=== PATIENT | female | born 1935 | race Asian ===

== ENCOUNTER 2017-02-13 15:04 | Inpatient (IN) | payer MEDICARE, OTHER ==
[~2017-02-13] VITALS: Ht 152.4 cm; Wt 73.9 kg
[~2017-02-13 15:04] MED LIST: AMLO-512 PO; ATEN25 PO; CALC-15 PO; CILO100T20 PO
[2017-02-13] MEDS ORDERED: SODIUM CHLORIDE 0.9% 1,000 ML IV ONE (15:45)
[2017-02-13] MEDS ORDERED: ALBUTEROL SULFATE 5 MG/ML 20 ML NEB SOLN [BULK] NEB ONE (15:45)
[2017-02-13] MEDS ORDERED: IPRATROPIUM BROMIDE 0.5 MG/2.5 ML NEB SOLUTION NEB ONE (15:45)
[2017-02-13 16:18] LABS: HEMATOCRIT 37.6 % (36-46); HEMOGLOBIN 12.5 g/dL (12.0-16.0); MEAN CORPUSCULAR HGB CONC 33.3 G/dL (31.0-37.0); MEAN CORPUSCULAR VOLUME 93 fL (80-100); RED BLOOD CELL COUNT(AUTO) 4.04 MIL/uL (4.00-5.20); WHITE BLOOD COUNT (AUTO) 21.8 K/uL (4.5-11.0)
[2017-02-13 16:25] LABS: ANION GAP 24 mmol/L (8-16); CARBON DIOXIDE 15 mmol/L (22-29); CHLORIDE 100 mmol/L (98-107); CREATININE 4.67 mg/dL (0.60-1.30); GLOMERULAR FILTR. RATE CALC 9 mL/min (>60); POTASSIUM 4.3 mmol/L (3.5-5.1); SODIUM SERUM 139 mmol/L (136-145); UREA NITROGEN, BLOOD 57 mg/dL (7-18)
[2017-02-13 16:27] LABS: ALANINE AMINOTRANSFERASE 40 U/L (12-78); ALBUMIN 3.2 g/dL (3.4-5.0); ASPARTATE AMINOTRANSFERASE 45 U/L (15-37); BILIRUBIN,TOTAL 0.8 mg/dL (0.1-1.0); TOTAL PROTEIN, SERUM 8.2 g/dL (6.4-8.2)
[2017-02-13 16:44] LABS: PLATELET COUNT (AUTO) 118 K/uL (150-450)
[2017-02-13] MEDS ORDERED: AZITHROMYCIN 500 MG/NS 250 ML IV ONE (16:45)
[2017-02-13] MEDS ORDERED: CefTRIAXone 1 GM/DEXTROSE 50 ML IV ONE (16:45)
[2017-02-13 16:47] LABS: BAND NEUTROPHILS % (MANUAL) 13 % (1-5); BASOPHILS % (MANUAL) 1 % (0-2); LYMPHOCYTES % (MANUAL) 5 % (22-44); TOTAL CELLS COUNTED 100
[2017-02-13 16:48] LABS: WBC MORPHOLOGY TOXIC VACUOLATION
[2017-02-13 16:48] LABS: ADD UA MICROSCOPIC YES; APPEARANCE,URINE TURBID (CLEAR); GLUCOSE, URINE (UA) NEGATIVE (NEGATIVE); KETONES,URINE TRACE mg/dL (NEGATIVE); LEUKOCYTE ESTERASE ,URINE MODERATE (NEGATIVE); OCCULT BLOOD,URINE LARGE (NEGATIVE); PROTEIN,URINE SEE CONFIRM (NEGATIVE)
[2017-02-13 16:49] LABS: SULFOSALICYLIC ACID,URINE 3+ (Negative)
[2017-02-13 16:50] LABS: SQUAMOUS EPITHELIAL CELL,UR Few /LPF (None Seen); WBC,URINE 26-50 /HPF (0-5)
[2017-02-13 16:55] LABS: B-TYPE NATRIURETIC PEPTIDE 603 pg/mL (0-100)
[2017-02-13 17:02] LABS: LACTIC ACID 5.7 mmol/L (0.4-2.0)
[2017-02-13 18:07] LABS: REFLEX LACTIC ACID? YES YES
[2017-02-13] MEDS ORDERED: ACETAMINOPHEN 325 MG TABLET PO PRN (18:15)
[2017-02-13] MEDS ORDERED: ZOLPIDEM TARTRATE 5 MG TABLET PO PRN (18:15)
[2017-02-13] MEDS ORDERED: SODIUM CHLORIDE 0.9% 500 ML IV ONE (19:00)
[2017-02-13] MEDS ORDERED: ACETAMINOPHEN 1000 MG/ISO-OSM 100 ML IV ONE (19:15)
[2017-02-13] MEDS ORDERED: MetroNIDAZOLE 500 MG TABLET PO ONE (22:45)
[2017-02-13] MEDS: CIPROFLOXACIN HCL 500 MG TABLET PO SCH (23:26)
[2017-02-13] MEDS: DEXTROSE 5%-0.45% SODIUM CHL 1,000 ML IV SCH (23:27)
[2017-02-14] VITALS (8 sets, daily range): BP systolic 87–126; BP diastolic 51–66
[2017-02-14] MEDS: HEPARIN SODIUM,PORCINE 5,000 UNITS/ML VIAL SQ SCH ×3 (01:14→16:00)
[2017-02-14] MEDS: LOPERAMIDE HCL 2 MG CAPSULE PO PRN ×2 (01:14→08:05)
[2017-02-14] MEDS: OxyCODONE HCL/ACETAMINOPHEN 5-325 MG TABLET PO PRN (04:29)
[2017-02-14] MEDS ORDERED: 0.9% SODIUM CHLORIDE 5 ML NEB SOLUTION NEB ONE ×2 (04:42→09:35)
[2017-02-14] MEDS: ALBUTEROL SULFATE 2.5 MG/0.5 ML NEB SOLUTION NEB PRN ×2 (04:58→09:36)
[2017-02-14 05:10] LABS: HEMOGLOBIN 11.7 g/dL (12.0-16.0); MEAN CORPUSCULAR HEMOGLOBIN 30.7 pg (26.0-34.0); MEAN CORPUSCULAR HGB CONC 31.7 G/dL (31.0-37.0); MEAN CORPUSCULAR VOLUME 97 fL (80-100); PLATELET COUNT (AUTO) 77 K/uL (150-450); RED BLOOD CELL COUNT(AUTO) 3.82 MIL/uL (4.00-5.20); RED CELL DISTRIBUTION WIDTH 15.3 % (11.5-14.5); WHITE BLOOD COUNT (AUTO) 10.9 K/uL (4.5-11.0)
[2017-02-14 05:48] LABS: ALBUMIN 2.4 g/dL (3.4-5.0); BILIRUBIN,TOTAL 0.7 mg/dL (0.1-1.0); CALCIUM, TOTAL 7.6 mg/dL (8.8-10.5); CREATININE 4.86 mg/dL (0.60-1.30); POTASSIUM 3.6 mmol/L (3.5-5.1); TOTAL PROTEIN, SERUM 6.9 g/dL (6.4-8.2)
[2017-02-14] MEDS: CILOSTAZOL 100 MG TABLET PO SCH ×3 (07:41→17:00)
[2017-02-14] MEDS: DEXTROSE 5%-0.45% SODIUM CHL 1,000 ML IV SCH (07:42)
[2017-02-14] MEDS: CIPROFLOXACIN HCL 500 MG TABLET PO SCH (08:04)
[2017-02-14] MEDS: PANTOPRAZOLE SODIUM 40 MG DR TABLET PO SCH (08:05)
[2017-02-14 08:39] LABS: ABG A-A DIFF O2 129.9 mmHg (10-20.0); ABG BASE EXCESS -10.4 mmol/L (-2.0-3.0); ABG HCO3 17.8 mmol/L (22.0-26.0); ABG OXYHEMOGLOBIN 94.4 % (94.0-100.0); ABG PCO2 23 mmHg (35-45); ABG PH 7.417 (7.35-7.450); TEMPERATURE, FAHRENHEIT, BG 98.6 FAHREN (96.0-98.6)
[2017-02-14 08:40] LABS: ALLEN TEST, BLOOD GAS Positive
[2017-02-14 08:44] LABS: BAND NEUTROPHILS % (MANUAL) 42 % (1-5); LYMPHOCYTES % (MANUAL) 6 % (22-44); TOTAL CELLS COUNTED 100
[2017-02-14 08:45] LABS: WBC MORPHOLOGY TOXIC GRANULATION
[2017-02-14] MEDS ORDERED: MetroNIDAZOLE 500 MG TABLET PO SCH (09:00)
[2017-02-14] MEDS ORDERED: LEVALBUTEROL HCL 1.25 MG/0.5 ML NEB SOLUTION NEB PRN (09:45)
[2017-02-14] MEDS ORDERED: PHENYLEPHRINE 200 MG/D5%-WATER 250 ML IV ONE (09:52)
[2017-02-14] MEDS: PHENYLEPHRINE 200 MG/D5%-WATER 250 ML IV PRN (09:53)
[2017-02-14 11:38] LABS: ABG A-A DIFF O2 126.7 mmHg (10-20.0); ABG HCO3 15.3 mmol/L (22.0-26.0); ABG OXYHEMOGLOBIN 96.1 % (94.0-100.0); ABG PCO2 28 mmHg (35-45); ABG PH 7.301 (7.35-7.450); ALLEN TEST, BLOOD GAS Positive; IPAP, BG 12 cm H2O; TEMPERATURE, FAHRENHEIT, BG 98.5 FAHREN (96.0-98.6)
[2017-02-14] MEDS: LEVALBUTEROL HCL 0.63 MG/3 ML NEB SOLUTION NEB SCH ×4 (11:49→23:48)
[2017-02-14] MEDS ORDERED: *CLINICAL-LEVOFLOXACIN IVPB DOSING CLINICAL ONE ×2 (12:30)
[2017-02-14] MEDS ORDERED: SODIUM BICARBONATE 50 MEQ in SODIUM CHLORIDE 0.9% 1,000 ML IV SCH (12:30)
[2017-02-14] MEDS ORDERED: SODIUM CHLORIDE 0.9% 250 ML IV ONE (12:56)
[2017-02-14] MEDS ORDERED: LEVOFLOXACIN 500 MG/D5% WATER 100 ML IV ONE (13:15)
[2017-02-14] MEDS: MetroNIDAZOLE 500 MG/NACL 100 ML IV SCH ×2 (13:33→20:33)
[2017-02-14 13:58] LABS: ANION GAP 19 mmol/L (8-16); CALCIUM, TOTAL 7.1 mg/dL (8.8-10.5); CARBON DIOXIDE 16 mmol/L (22-29); CHLORIDE 97 mmol/L (98-107); CREATININE 5.35 mg/dL (0.60-1.30); GLOMERULAR FILTR. RATE CALC 8 mL/min (>60); POTASSIUM 3.8 mmol/L (3.5-5.1); SODIUM SERUM 132 mmol/L (136-145); UREA NITROGEN, BLOOD 69 mg/dL (7-18)
[2017-02-14 14:06] LABS: OSMOLALITY 297 mOS/kg (270-310)
[2017-02-14] MEDS ORDERED: SODIUM BICARBONATE 150 MEQ in DEXTROSE 5%-WATER 1,000 ML IV ONE (14:30)
[2017-02-14 14:44] LABS: SALICYLATE 2.8 mg/dL (2.8-20.0)
[2017-02-14 15:14] LABS: ACETAMINOPHEN < 2 mcg/mL (10-30)
[2017-02-14 19:32] LABS: PHOSPHORUS 3.6 mg/dL (2.5-4.9)
[2017-02-14 21:10] LABS: LACTIC ACID 3.2 mmol/L (0.4-2.0)
[2017-02-14] MEDS ORDERED: BUMETANIDE 0.25 MG/ML 10 ML VIAL IVP ONE (21:45)
[2017-02-14] MEDS ORDERED: MAGNESIUM SULFATE 3 GM in DEXTROSE 5%-WATER 100 ML IV ONE (22:00)
[2017-02-14 22:22] LABS: REFLEX LACTIC ACID? YES YES
[2017-02-14 23:44] LABS: ABG A-A DIFF O2 118.9 mmHg (10-20.0); ABG BASE EXCESS -12.1 mmol/L (-2.0-3.0); ABG HCO3 15.5 mmol/L (22.0-26.0); ABG OXYHEMOGLOBIN 94.3 % (94.0-100.0); ABG PCO2 40 mmHg (35-45); ABG PH 7.215 (7.35-7.450); ALLEN TEST, BLOOD GAS Positive
[2017-02-14 23:45] LABS: IPAP, BG 14 cm H2O
[2017-02-15] VITALS (10 sets, daily range): BP systolic 89–132; BP diastolic 29–81
[2017-02-15] MEDS ORDERED: RAPID SEQUENCE KIT [RSI] 1 EACH KIT ONE ×2
[2017-02-15] MEDS ORDERED: SUCCINYLCHOLINE CHLORIDE 20 MG/ML 10 ML VIAL ONE (00:01)
[2017-02-15 01:57] LABS: ABG A-A DIFF O2 274.7 mmHg (10-20.0); ABG BASE EXCESS -11.4 mmol/L (-2.0-3.0); ABG HCO3 16.5 mmol/L (22.0-26.0); ABG OXYHEMOGLOBIN 97.7 % (94.0-100.0); ABG PCO2 28 mmHg (35-45); ABG PH 7.334 (7.35-7.450); ALLEN TEST, BLOOD GAS Positive; TEMPERATURE, FAHRENHEIT, BG 100.6 FAHREN (96.0-98.6)
[2017-02-15] MEDS: HEPARIN SODIUM,PORCINE 5,000 UNITS/ML VIAL SQ SCH ×4 (02:17→23:38)
[2017-02-15] MEDS: LEVALBUTEROL HCL 0.63 MG/3 ML NEB SOLUTION NEB SCH ×6 (04:15→23:39)
[2017-02-15 05:26] LABS: EOSINOPHILS % (AUTO) 0 % (1.0-6.0); HEMOGLOBIN 10.3 g/dL (12.0-16.0); LYMPHOCYTES # (AUTO) 0.6 K/uL (1.0-4.8); MEAN CORPUSCULAR HEMOGLOBIN 30.6 pg (26.0-34.0); MEAN CORPUSCULAR HGB CONC 32.1 G/dL (31.0-37.0); MEAN CORPUSCULAR VOLUME 96 fL (80-100); MONOCYTES # (AUTO) 0.9 K/uL (0.1-1.0); MONOCYTES % (AUTO) 4.2 % (2.0-9.0); NEUTROPHILS # (AUTO) 19.3 K/uL (1.8-7.7); PLATELET COUNT (AUTO) 51 K/uL (150-450); RED BLOOD CELL COUNT(AUTO) 3.35 MIL/uL (4.00-5.20); RED CELL DISTRIBUTION WIDTH 15.4 % (11.5-14.5); WHITE BLOOD COUNT (AUTO) 20.8 K/uL (4.5-11.0)
[2017-02-15 05:51] LABS: NEUTROPHILS % (AUTO) 92.8 % (40.0-70.0)
[2017-02-15] MEDS: MetroNIDAZOLE 500 MG/NACL 100 ML IV SCH ×2 (05:51→13:30)
[2017-02-15 06:29] LABS: BILIRUBIN,TOTAL 1.7 mg/dL (0.1-1.0); CALCIUM, TOTAL 7.1 mg/dL (8.8-10.5); CREATINE KINASE MB 13.8 ng/mL (0-5); CREATININE 5.96 mg/dL (0.60-1.30); MAGNESIUM 2.5 mg/dL (1.80-2.40); PHOSPHORUS 3.8 mg/dL (2.5-4.9); POTASSIUM 4.1 mmol/L (3.5-5.1); TOTAL PROTEIN, SERUM 5.9 g/dL (6.4-8.2)
[2017-02-15] MEDS: CILOSTAZOL 100 MG TABLET PO SCH ×2 (06:46→17:16)
[2017-02-15] MEDS ORDERED: 0.9% SODIUM CHLORIDE 10 ML SYRINGE IVP PRN (07:00)
[2017-02-15] MEDS: PHENYLEPHRINE 200 MG/D5%-WATER 250 ML IV PRN ×2 (07:44→19:41)
[2017-02-15] MEDS: OxyCODONE HCL/ACETAMINOPHEN 5-325 MG TABLET PO PRN (07:48)
[2017-02-15] MEDS: PANTOPRAZOLE SODIUM 40 MG DR TABLET PO SCH (09:02)
[2017-02-15] MEDS ORDERED: PROPOFOL 1000 MG/ISO-OSM 100 ML IV ONE (09:59)
[2017-02-15] MEDS ORDERED: DIGOXIN 250 MCG/ML 2 ML AMP IVP ONE ×3 (10:00→13:30)
[2017-02-15] MEDS: MORPHINE SULFATE 2 MG/ML SYRINGE IVP PRN ×2 (10:00→16:39)
[2017-02-15 10:41] LABS: ABG A-A DIFF O2 257.4 mmHg (10-20.0); ABG BASE EXCESS -12.4 mmol/L (-2.0-3.0); ABG HCO3 16.2 mmol/L (22.0-26.0); ABG OXYHEMOGLOBIN 93.9 % (94.0-100.0); ABG PCO2 24 mmHg (35-45); ABG PH 7.356 (7.35-7.450); TEMPERATURE, FAHRENHEIT, BG 98.6 FAHREN (96.0-98.6)
[2017-02-15 10:54] LABS: ALLEN TEST, BLOOD GAS Positive
[2017-02-15] MEDS ORDERED: SUCCINYLCHOLINE CHLORIDE 20 MG/ML 10 ML VIAL IVP ONE (12:00)
[2017-02-15] MEDS ORDERED: ETOMIDATE 2 MG/ML 10 ML VIAL IVP ONE (12:00)
[2017-02-15 12:10] LABS: ABG A-A DIFF O2 245.4 mmHg (10-20.0); ABG BASE EXCESS -13.3 mmol/L (-2.0-3.0); ABG HCO3 15.3 mmol/L (22.0-26.0); ABG OXYHEMOGLOBIN 96.9 % (94.0-100.0); ABG PCO2 23 mmHg (35-45); ABG PH 7.348 (7.35-7.450)
[2017-02-15] MEDS ORDERED: AMIODARONE HCL 150 MG in DEXTROSE 5%-WATER 97 ML IV ONE (12:15)
[2017-02-15] MEDS ORDERED: AMIODARONE HCL 360 MG in DEXTROSE 5%-WATER 242.8 ML IV ONE (12:15)
[2017-02-15] MEDS: AMIODARONE HCL 540 MG in DEXTROSE 5%-WATER 239.2 ML IV ONE ×2 (13:00→18:45)
[2017-02-15] MEDS ORDERED: NOREPINEPHRINE 4 MG/D5%-WATER 250 ML IV ONE (13:06)
[2017-02-15] MEDS ORDERED: SODIUM CHLORIDE 0.9% 2,000 ML IV ONE (13:28)
[2017-02-15] MEDS ORDERED: ALBUMIN HUMAN 25%-12.5GM/50ML IV BOTTLE IV PRN (18:45)
[2017-02-15] MEDS ORDERED: MANNITOL 25%-12.5 GM/50 ML VIAL IVP PRN (18:45)
[2017-02-15] MEDS: NOREPINEPHRINE 4 MG/D5%-WATER 250 ML IV PRN (19:42)
[2017-02-15] MEDS: POTASSIUM CHLORIDE 20 MEQ in NXSTAGE RFP-402 K0/CA3 5,000 ML IRRIG PRN ×2 (23:39→23:40)
[2017-02-16] VITALS (8 sets, daily range): BP systolic 85–117; BP diastolic 34–40
[2017-02-16] MEDS ORDERED: SODIUM CHLORIDE 0.9% 500 ML IV ONE ×3 (00:04→13:47)
[2017-02-16] MEDS ORDERED: SODIUM CHLORIDE 0.9% 250 ML IV ONE (01:00)
[2017-02-16] MEDS: LEVALBUTEROL HCL 0.63 MG/3 ML NEB SOLUTION NEB SCH ×6 (03:47→22:49)
[2017-02-16] MEDS: NOREPINEPHRINE 4 MG/D5%-WATER 250 ML IV PRN ×6 (03:51→20:26)
[2017-02-16] MEDS: VASOPRESSIN 100 UNITS in DEXTROSE 5%-WATER 245 ML IV PRN (03:52)
[2017-02-16] MEDS: PROPOFOL 1000 MG/ISO-OSM 100 ML IV PRN ×2 (03:54→16:50)
[2017-02-16 04:48] LABS: BASOPHILS % (AUTO) 0.1 % (0.0-2.0); EOSINOPHILS % (AUTO) 1.9 % (1.0-6.0); HEMATOCRIT 31.1 % (36-46); HEMOGLOBIN 10.2 g/dL (12.0-16.0); LYMPHOCYTES % (AUTO) 4.8 % (22.0-44.0); MEAN CORPUSCULAR HEMOGLOBIN 30.6 pg (26.0-34.0); MEAN CORPUSCULAR HGB CONC 32.7 G/dL (31.0-37.0); MEAN CORPUSCULAR VOLUME 94 fL (80-100); MONOCYTES # (AUTO) 1.3 K/uL (0.1-1.0); MONOCYTES % (AUTO) 6.1 % (2.0-9.0); NEUTROPHILS # (AUTO) 18.7 K/uL (1.8-7.7); PLATELET COUNT (AUTO) 45 K/uL (150-450); RED BLOOD CELL COUNT(AUTO) 3.32 MIL/uL (4.00-5.20); RED CELL DISTRIBUTION WIDTH 15.2 % (11.5-14.5); WHITE BLOOD COUNT (AUTO) 21.5 K/uL (4.5-11.0)
[2017-02-16 05:05] LABS: NEUTROPHILS % (AUTO) 87.1 % (40.0-70.0)
[2017-02-16 05:10] LABS: ALBUMIN 1.7 g/dL (3.4-5.0); BILIRUBIN,TOTAL 3.1 mg/dL (0.1-1.0); CALCIUM, TOTAL 7.1 mg/dL (8.8-10.5); CREATININE 4.16 mg/dL (0.60-1.30); PHOSPHORUS 4.3 mg/dL (2.5-4.9); POTASSIUM 4.4 mmol/L (3.5-5.1); THYROID STIMULATING HORMONE 0.09 uIU/mL (0.36-3.74); TOTAL PROTEIN, SERUM 5.2 g/dL (6.4-8.2)
[2017-02-16] MEDS ORDERED: HEPARIN SODIUM,PORCINE 1,000 UNITS/ML VIAL ONE (05:17)
[2017-02-16 05:31] LABS: RBC MORPHOLOGY COMMENT ABNORMAL RBC MORPH
[2017-02-16] MEDS ORDERED: HEPARIN SODIUM,PORCINE 1,000 UNITS/ML VIAL IVP ONE ×2 (05:45→06:00)
[2017-02-16] MEDS: CILOSTAZOL 100 MG TABLET PO SCH ×2 (06:44→17:00)
[2017-02-16] MEDS: PHENYLEPHRINE 200 MG/D5%-WATER 250 ML IV PRN ×2 (06:46→19:57)
[2017-02-16] MEDS: MORPHINE SULFATE 2 MG/ML SYRINGE IVP PRN (07:28)
[2017-02-16] MEDS: HEPARIN SODIUM,PORCINE 5,000 UNITS/ML VIAL SQ SCH ×2 (08:00)
[2017-02-16] MEDS ORDERED: DEXTROSE 50%-WATER 25 GM/50 ML SYRINGE IVP ONE ×2 (08:00)
[2017-02-16 09:00] LABS: INR 1.6 (0.9-1.1); PROTHROMBIN TIME 17.4 SEC (9.4-11.6)
[2017-02-16] MEDS ORDERED: ALBUMIN HUMAN 25%-12.5GM/50ML 50 ML IV ONE ×2 (09:00)
[2017-02-16] MEDS: PANTOPRAZOLE SODIUM 40 MG DR TABLET PO SCH (09:00)
[2017-02-16] MEDS ORDERED: SODIUM BICARBONATE 50 MEQ/50 ML VIAL IVP ONE (10:00)
[2017-02-16] MEDS: PHYTONADIONE 10 MG/1 ML AMP SQ SCH (10:00)
[2017-02-16] MEDS ORDERED: SODIUM CHLORIDE 0.9% 1,000 ML IV ONE (10:01)
[2017-02-16] MEDS ORDERED: SODIUM BICARBONATE [ADULT] 8.4% 50 MEQ/50 ML SYRINGE IVP ONE (10:15)
[2017-02-16 11:11] LABS: GLUCOSE COMMENT 1 Doctor Notified; GLUCOSE,POINT OF CARE 37 MG/DL (70-110)
[2017-02-16] MEDS: POTASSIUM CHLORIDE 20 MEQ in NXSTAGE RFP-402 K0/CA3 5,000 ML IRRIG PRN ×4 (11:25→23:34)
[2017-02-16] MEDS: METOCLOPRAMIDE HCL 5 MG/ML 2 ML VIAL IVP PRN ×2 (11:26→22:30)
[2017-02-16] MEDS ORDERED: AMIODARONE HCL 750 MG in DEXTROSE 5%-WATER 485 ML IV SCH (12:30)
[2017-02-16] MEDS ORDERED: LEVOFLOXACIN 250 MG/D5% WATER 50 ML IV SCH (13:00)
[2017-02-16] MEDS: CefTRIAXone 1 GM/DEXTROSE 50 ML IV SCH (14:12)
[2017-02-16 15:32] LABS: ABG A-A DIFF O2 219.6 mmHg (10-20.0); ABG BASE EXCESS -10.7 mmol/L (-2.0-3.0); ABG HCO3 16.8 mmol/L (22.0-26.0); ABG OXYHEMOGLOBIN 96.7 % (94.0-100.0); ABG PCO2 31 mmHg (35-45); ABG PH 7.312 (7.35-7.450); TEMPERATURE, FAHRENHEIT, BG 98.6 FAHREN (96.0-98.6)
[2017-02-16 18:27] LABS: GLUCOSE,POINT OF CARE 147 MG/DL (70-110)
[2017-02-16 18:27] LABS: GLUCOSE,POINT OF CARE 228 MG/DL (70-110)
[2017-02-16 18:27] LABS: GLUCOSE,POINT OF CARE 184 MG/DL (70-110)
[2017-02-16 18:27] LABS: GLUCOSE,POINT OF CARE 112 MG/DL (70-110)
[2017-02-16 18:27] LABS: GLUCOSE,POINT OF CARE 119 MG/DL (70-110)
[2017-02-16 18:27] LABS: GLUCOSE,POINT OF CARE 141 MG/DL (70-110)
[2017-02-16 20:39] LABS: CALCIUM, TOTAL 6.9 mg/dL (8.8-10.5); CREATININE 2.36 mg/dL (0.60-1.30); POTASSIUM 4.1 mmol/L (3.5-5.1)
[2017-02-16 20:42] LABS: MAGNESIUM 1.7 mg/dL (1.80-2.40); PHOSPHORUS 3.1 mg/dL (2.5-4.9)
[2017-02-16] MEDS: MetroNIDAZOLE 500 MG/NACL 100 ML IV SCH (22:13)
[2017-02-17] VITALS: BP 99/29
[2017-02-17] MEDS: NOREPINEPHRINE 4 MG/D5%-WATER 250 ML IV PRN ×5 (00:47→19:52)
[2017-02-17 01:01] LABS: GLUCOSE,POINT OF CARE 163 MG/DL (70-110)
[2017-02-17 01:01] LABS: GLUCOSE,POINT OF CARE 71 MG/DL (70-110)
[2017-02-17 01:01] LABS: GLUCOSE COMMENT 1 Received Meds; GLUCOSE,POINT OF CARE 61 MG/DL (70-110)
[2017-02-17 01:01] LABS: GLUCOSE,POINT OF CARE 98 MG/DL (70-110)
[2017-02-17] MEDS: LEVALBUTEROL HCL 0.63 MG/3 ML NEB SOLUTION NEB SCH ×6 (02:55→23:46)
[2017-02-17 04:00] VITALS: BP 132/38
[2017-02-17] MEDS: PROPOFOL 1000 MG/ISO-OSM 100 ML IV PRN ×2 (04:57→22:55)
[2017-02-17] MEDS: POTASSIUM CHLORIDE 20 MEQ in NXSTAGE RFP-402 K0/CA3 5,000 ML IRRIG PRN ×4 (05:46→20:31)
[2017-02-17] MEDS: DEXTROSE 50%-WATER 25 GM/50 ML SYRINGE IVP PRN ×2 (05:50)
[2017-02-17] MEDS: MetroNIDAZOLE 500 MG/NACL 100 ML IV SCH ×2 (05:50→16:05)
[2017-02-17 06:12] LABS: GLUCOSE COMMENT 1 Received Meds; GLUCOSE,POINT OF CARE 66 MG/DL (70-110)
[2017-02-17 06:19] LABS: EOSINOPHILS % (AUTO) 3.5 % (1.0-6.0); HEMATOCRIT 29.5 % (36-46); HEMOGLOBIN 9.8 g/dL (12.0-16.0); LYMPHOCYTES # (AUTO) 0.5 K/uL (1.0-4.8); LYMPHOCYTES % (AUTO) 2.6 % (22.0-44.0); MEAN CORPUSCULAR HEMOGLOBIN 31.7 pg (26.0-34.0); MEAN CORPUSCULAR HGB CONC 33.1 G/dL (31.0-37.0); MEAN CORPUSCULAR VOLUME 96 fL (80-100); MONOCYTES # (AUTO) 0.8 K/uL (0.1-1.0); MONOCYTES % (AUTO) 4.1 % (2.0-9.0); PLATELET COUNT (AUTO) 25 K/uL (150-450); RED BLOOD CELL COUNT(AUTO) 3.09 MIL/uL (4.00-5.20); RED CELL DISTRIBUTION WIDTH 14.9 % (11.5-14.5)
[2017-02-17] MEDS: CILOSTAZOL 100 MG TABLET PO SCH ×2 (06:23→17:00)
[2017-02-17 06:38] LABS: POTASSIUM 4.1 mmol/L (3.5-5.1)
[2017-02-17 06:43] LABS: ALBUMIN 1.7 g/dL (3.4-5.0); BILIRUBIN,TOTAL 4.3 mg/dL (0.1-1.0); CALCIUM, TOTAL 7.3 mg/dL (8.8-10.5); CREATININE 1.93 mg/dL (0.60-1.30); MAGNESIUM 1.6 mg/dL (1.80-2.40); TOTAL PROTEIN, SERUM 4.7 g/dL (6.4-8.2)
[2017-02-17 06:56] LABS: NEUTROPHILS % (AUTO) 89.8 % (40.0-70.0)
[2017-02-17 06:57] LABS: RBC MORPHOLOGY COMMENT ABNORMAL RBC MORPH
[2017-02-17 07:18] LABS: PROCALCITONIN (PCT) 58.11 ng/mL (<0.50)
[2017-02-17 07:27] LABS: GLUCOSE,POINT OF CARE 93 MG/DL (70-110)
[2017-02-17 07:27] LABS: GLUCOSE,POINT OF CARE 85 MG/DL (70-110)
[2017-02-17 07:27] LABS: GLUCOSE,POINT OF CARE 161 MG/DL (70-110)
[2017-02-17 08:00] VITALS: BP 136/51
[2017-02-17] MEDS: PANTOPRAZOLE SODIUM 40 MG DR TABLET PO SCH (09:00)
[2017-02-17 09:47] LABS: ABG A-A DIFF O2 241.4 mmHg (10-20.0); ABG BASE EXCESS -2.9 mmol/L (-2.0-3.0); ABG HCO3 22.6 mmol/L (22.0-26.0); ABG OXYHEMOGLOBIN 95.9 % (94.0-100.0); ABG PCO2 31 mmHg (35-45); ABG PH 7.446 (7.35-7.450); TEMPERATURE, FAHRENHEIT, BG 97.7 FAHREN (96.0-98.6)
[2017-02-17 09:50] LABS: ALLEN TEST, BLOOD GAS Positive
[2017-02-17] MEDS: PHYTONADIONE 10 MG/1 ML AMP SQ SCH (09:59)
[2017-02-17] MEDS: METOCLOPRAMIDE HCL 5 MG/ML 2 ML VIAL IVP PRN (09:59)
[2017-02-17] MEDS ORDERED: MAGNESIUM SULFATE 3 GM in DEXTROSE 5%-WATER 100 ML IV ONE (10:00)
[2017-02-17 12:00] VITALS: BP 141/51
[2017-02-17 12:00] LABS: PHOSPHORUS 2.4 mg/dL (2.5-4.9)
[2017-02-17] MEDS: DEXTROSE 10%-WATER 1,000 ML IV SCH (12:00)
[2017-02-17] MEDS: CefTRIAXone 1 GM/DEXTROSE 50 ML IV SCH (14:19)
[2017-02-17 16:00] VITALS: BP 118/48
[2017-02-17 18:11] LABS: GLUCOSE,POINT OF CARE 92 MG/DL (70-110)
[2017-02-17 18:11] LABS: GLUCOSE,POINT OF CARE 118 MG/DL (70-110)
[2017-02-17] MEDS ORDERED: SODIUM CHLORIDE 0.9% 2,000 ML IV ONE (18:38)
[2017-02-17 20:00] VITALS: BP 106/44
[2017-02-17] MEDS ORDERED: SODIUM PHOS,M-BASIC-D-BASIC 30 MMOL in DEXTROSE 5%-WATER 250 ML IV ONE (20:30)
[2017-02-17] MEDS: VASOPRESSIN 100 UNITS in DEXTROSE 5%-WATER 245 ML IV PRN (20:41)
[2017-02-17] MEDS: PHENYLEPHRINE 200 MG/D5%-WATER 250 ML IV PRN (23:57)
[2017-02-18] VITALS: BP_SYST 132; BP_SYST 133; BP_DIAS 48; BP_DIAS 72
[2017-02-18] MEDS: NOREPINEPHRINE 4 MG/D5%-WATER 250 ML IV PRN ×6 (00:05→22:19)
[2017-02-18] MEDS: MetroNIDAZOLE 500 MG/NACL 100 ML IV SCH ×4 (00:33→23:53)
[2017-02-18 01:51] LABS: GLUCOSE COMMENT 1 Doctor Notified; GLUCOSE,POINT OF CARE 155 MG/DL (70-110)
[2017-02-18 01:51] LABS: GLUCOSE,POINT OF CARE 174 MG/DL (70-110)
[2017-02-18 01:51] LABS: GLUCOSE,POINT OF CARE 117 MG/DL (70-110)
[2017-02-18 01:51] LABS: GLUCOSE,POINT OF CARE 157 MG/DL (70-110)
[2017-02-18 01:51] LABS: GLUCOSE COMMENT 1 Doctor Notified; GLUCOSE,POINT OF CARE 150 MG/DL (70-110)
[2017-02-18 01:51] LABS: GLUCOSE,POINT OF CARE 163 MG/DL (70-110)
[2017-02-18 01:51] LABS: GLUCOSE,POINT OF CARE 148 MG/DL (70-110)
[2017-02-18] MEDS ORDERED: SODIUM CHLORIDE 0.9% 500 ML IV ONE (02:43)
[2017-02-18] MEDS: LEVALBUTEROL HCL 0.63 MG/3 ML NEB SOLUTION NEB SCH ×6 (03:17→23:02)
[2017-02-18] MEDS: POTASSIUM CHLORIDE 20 MEQ in NXSTAGE RFP-402 K0/CA3 5,000 ML IRRIG PRN ×2 (03:30→03:31)
[2017-02-18 04:00] VITALS: BP 133/72
[2017-02-18 06:10] LABS: ALBUMIN 1.6 g/dL (3.4-5.0); BILIRUBIN,TOTAL 5.7 mg/dL (0.1-1.0); CALCIUM, TOTAL 6.7 mg/dL (8.8-10.5); CREATININE 1.39 mg/dL (0.60-1.30); MAGNESIUM 2.1 mg/dL (1.80-2.40); POTASSIUM 4.5 mmol/L (3.5-5.1); TOTAL PROTEIN, SERUM 4.1 g/dL (6.4-8.2)
[2017-02-18] MEDS: CILOSTAZOL 100 MG TABLET PO SCH ×2 (06:30→16:00)
[2017-02-18 07:15] LABS: HEMATOCRIT 31.9 % (36-46); HEMOGLOBIN 10.9 g/dL (12.0-16.0); MEAN CORPUSCULAR HEMOGLOBIN 31.7 pg (26.0-34.0); MEAN CORPUSCULAR HGB CONC 34.1 G/dL (31.0-37.0); MEAN CORPUSCULAR VOLUME 93 fL (80-100); RED BLOOD CELL COUNT(AUTO) 3.43 MIL/uL (4.00-5.20); RED CELL DISTRIBUTION WIDTH 15.5 % (11.5-14.5); WHITE BLOOD COUNT (AUTO) 17.3 K/uL (4.5-11.0)
[2017-02-18 07:18] LABS: PLATELET COUNT (AUTO) 21 K/uL (150-450)
[2017-02-18 07:57] LABS: GLUCOSE,POINT OF CARE 134 MG/DL (70-110)
[2017-02-18 07:57] LABS: GLUCOSE,POINT OF CARE 149 MG/DL (70-110)
[2017-02-18 07:57] LABS: GLUCOSE,POINT OF CARE 139 MG/DL (70-110)
[2017-02-18 08:00] VITALS: BP 125/59
[2017-02-18] MEDS: PANTOPRAZOLE SODIUM 40 MG DR TABLET PO SCH (08:19)
[2017-02-18] MEDS: PHYTONADIONE 10 MG/1 ML AMP SQ SCH (08:19)
[2017-02-18 08:23] LABS: BAND NEUTROPHILS % (MANUAL) 22 % (1-5); LYMPHOCYTES % (MANUAL) 9 % (22-44); TOTAL CELLS COUNTED 100
[2017-02-18] MEDS ORDERED: SODIUM CHLORIDE 0.9% 250 ML IV ONE (09:02)
[2017-02-18] MEDS: PHENYLEPHRINE 200 MG/D5%-WATER 250 ML IV PRN (09:04)
[2017-02-18 10:21] LABS: ABG A-A DIFF O2 255.9 mmHg (10-20.0); ABG BASE EXCESS 0.2 mmol/L (-2.0-3.0); ABG HCO3 25.2 mmol/L (22.0-26.0); ABG OXYHEMOGLOBIN 93.9 % (94.0-100.0); ABG PCO2 29 mmHg (35-45); ABG PH 7.515 (7.35-7.450)
[2017-02-18 10:26] LABS: ALLEN TEST, BLOOD GAS Positive
[2017-02-18 12:00] VITALS: BP 114/48
[2017-02-18] MEDS: CefTRIAXone 1 GM/DEXTROSE 50 ML IV SCH (13:10)
[2017-02-18] MEDS: DEXTROSE 10%-WATER 1,000 ML IV SCH (13:10)
[2017-02-18] MEDS ORDERED: SODIUM PHOS,M-BASIC-D-BASIC 30 MMOL in DEXTROSE 5%-WATER 250 ML IV ONE (15:00)
[2017-02-18 16:00] VITALS: BP 105/52
[2017-02-18] MEDS: PROPOFOL 1000 MG/ISO-OSM 100 ML IV PRN (16:00)
[2017-02-18 20:00] VITALS: BP 95/43
[2017-02-19] VITALS: BP 124/54
[2017-02-19] MEDS: POTASSIUM CHLORIDE 20 MEQ in NXSTAGE RFP-402 K0/CA3 5,000 ML IRRIG PRN ×2 (02:26→02:27)
[2017-02-19 02:27] LABS: GLUCOSE,POINT OF CARE 144 MG/DL (70-110)
[2017-02-19 02:27] LABS: GLUCOSE,POINT OF CARE 125 MG/DL (70-110)
[2017-02-19 02:27] LABS: GLUCOSE,POINT OF CARE 135 MG/DL (70-110)
[2017-02-19 02:27] LABS: GLUCOSE,POINT OF CARE 120 MG/DL (70-110)
[2017-02-19 02:27] LABS: GLUCOSE,POINT OF CARE 132 MG/DL (70-110)
[2017-02-19 02:27] LABS: GLUCOSE,POINT OF CARE 147 MG/DL (70-110)
[2017-02-19 02:27] LABS: GLUCOSE,POINT OF CARE 143 MG/DL (70-110)
[2017-02-19 02:32] LABS: GLUCOSE,POINT OF CARE 156 MG/DL (70-110)
[2017-02-19 02:32] LABS: GLUCOSE,POINT OF CARE 155 MG/DL (70-110)
[2017-02-19 02:32] LABS: GLUCOSE,POINT OF CARE 128 MG/DL (70-110)
[2017-02-19] MEDS: NOREPINEPHRINE 4 MG/D5%-WATER 250 ML IV PRN ×5 (02:38→20:10)
[2017-02-19] MEDS: LEVALBUTEROL HCL 0.63 MG/3 ML NEB SOLUTION NEB SCH ×6 (03:12→23:05)
[2017-02-19] MEDS: VASOPRESSIN 100 UNITS in DEXTROSE 5%-WATER 245 ML IV PRN (03:43)
[2017-02-19 04:00] VITALS: BP 125/54
[2017-02-19] MEDS: PROPOFOL 1000 MG/ISO-OSM 100 ML IV PRN ×2 (04:01→14:17)
[2017-02-19 06:01] LABS: ALBUMIN 1.4 g/dL (3.4-5.0); BILIRUBIN,TOTAL 6.6 mg/dL (0.1-1.0); CALCIUM, TOTAL 6.9 mg/dL (8.8-10.5); CREATININE 1.53 mg/dL (0.60-1.30); POTASSIUM 3.4 mmol/L (3.5-5.1); TOTAL PROTEIN, SERUM 4.6 g/dL (6.4-8.2)
[2017-02-19] MEDS: CILOSTAZOL 100 MG TABLET PO SCH ×2 (06:30→07:23)
[2017-02-19 06:39] LABS: BASOPHILS % (AUTO) 0.1 % (0.0-2.0); EOSINOPHILS % (AUTO) 0.9 % (1.0-6.0); HEMATOCRIT 29.5 % (36-46); HEMOGLOBIN 9.6 g/dL (12.0-16.0); LYMPHOCYTES # (AUTO) 0.7 K/uL (1.0-4.8); LYMPHOCYTES % (AUTO) 3.7 % (22.0-44.0); MEAN CORPUSCULAR HEMOGLOBIN 30.6 pg (26.0-34.0); MEAN CORPUSCULAR HGB CONC 32.7 G/dL (31.0-37.0); MEAN CORPUSCULAR VOLUME 94 fL (80-100); MONOCYTES # (AUTO) 0.4 K/uL (0.1-1.0); MONOCYTES % (AUTO) 2.1 % (2.0-9.0); NEUTROPHILS # (AUTO) 17.3 K/uL (1.8-7.7); NEUTROPHILS % (AUTO) 93.2 % (40.0-70.0); PLATELET COUNT (AUTO) 20 K/uL (150-450); RED BLOOD CELL COUNT(AUTO) 3.15 MIL/uL (4.00-5.20); RED CELL DISTRIBUTION WIDTH 15.4 % (11.5-14.5); WHITE BLOOD COUNT (AUTO) 18.6 K/uL (4.5-11.0)
[2017-02-19 06:57] LABS: GLUCOSE,POINT OF CARE 140 MG/DL (70-110)
[2017-02-19 06:57] LABS: GLUCOSE,POINT OF CARE 138 MG/DL (70-110)
[2017-02-19] MEDS: PANTOPRAZOLE SODIUM 40 MG DR TABLET PO SCH (07:58)
[2017-02-19] MEDS: MetroNIDAZOLE 500 MG/NACL 100 ML IV SCH ×2 (07:59→16:56)
[2017-02-19 08:00] VITALS: BP 123/53
[2017-02-19 08:48] LABS: PHOSPHORUS 2.7 mg/dL (2.5-4.9)
[2017-02-19] MEDS ORDERED: SODIUM PHOS,M-BASIC-D-BASIC 30 MMOL in DEXTROSE 5%-WATER 250 ML IV ONE (10:15)
[2017-02-19 11:52] LABS: GLUCOSE,POINT OF CARE 132 MG/DL (70-110)
[2017-02-19 12:00] VITALS: BP 93/45
[2017-02-19] MEDS: CefTRIAXone 1 GM/DEXTROSE 50 ML IV SCH (14:17)
[2017-02-19 16:00] VITALS: BP 122/53
[2017-02-19] MEDS: DEXTROSE 10%-WATER 1,000 ML IV SCH (16:20)
[2017-02-19] MEDS ORDERED: SODIUM CHLORIDE 0.9% 500 ML IV ONE (16:59)
[2017-02-19 20:00] VITALS: BP 114/51
[2017-02-19] MEDS: ALBUMIN HUMAN 25%-12.5GM/50ML 50 ML IV SCH (20:11)
[2017-02-20] VITALS: BP 115/58
[2017-02-20] MEDS: MetroNIDAZOLE 500 MG/NACL 100 ML IV SCH ×3 (00:41→16:59)
[2017-02-20] MEDS: PROPOFOL 1000 MG/ISO-OSM 100 ML IV PRN ×3 (00:41→21:39)
[2017-02-20] MEDS: LEVALBUTEROL HCL 0.63 MG/3 ML NEB SOLUTION NEB SCH ×6 (02:58→22:55)
[2017-02-20] MEDS: NOREPINEPHRINE 4 MG/D5%-WATER 250 ML IV PRN ×4 (03:55→21:38)
[2017-02-20 04:00] VITALS: BP 121/48
[2017-02-20 04:32] LABS: GLUCOSE COMMENT 1 Received Meds; GLUCOSE,POINT OF CARE 135 MG/DL (70-110)
[2017-02-20 06:20] LABS: ALBUMIN 1.4 g/dL (3.4-5.0); CHLORIDE 95 mmol/L (98-107); CREATINE KINASE, TOTAL 492 U/L (26-192); GLOMERULAR FILTR. RATE CALC 21 mL/min (>60); TOTAL PROTEIN, SERUM 4.3 g/dL (6.4-8.2)
[2017-02-20 06:38] LABS: BASOPHILS # (AUTO) 0.02 K/uL (0.00-0.20); BASOPHILS % (AUTO) 0.1 % (0.0-2.0); EOSINOPHILS # (AUTO) 0.26 K/uL (0.00-0.70); HEMATOCRIT 25.6 % (36-46); HEMOGLOBIN 8.9 g/dL (12.0-16.0); LYMPHOCYTES % (AUTO) 5.1 % (22.0-44.0); MEAN CORPUSCULAR HEMOGLOBIN 32.3 pg (26.0-34.0); MEAN CORPUSCULAR HGB CONC 34.6 G/dL (31.0-37.0); MEAN CORPUSCULAR VOLUME 93 fL (80-100); MONOCYTES # (AUTO) 0.6 K/uL (0.1-1.0); MONOCYTES % (AUTO) 3.2 % (2.0-9.0); NEUTROPHILS # (AUTO) 17.8 K/uL (1.8-7.7); PLATELET COUNT (AUTO) 21 K/uL (150-450); RED BLOOD CELL COUNT(AUTO) 2.75 MIL/uL (4.00-5.20); RED CELL DISTRIBUTION WIDTH 15.3 % (11.5-14.5); WHITE BLOOD COUNT (AUTO) 19.7 K/uL (4.5-11.0)
[2017-02-20 06:41] LABS: NEUTROPHILS % (AUTO) 90.3 % (40.0-70.0)
[2017-02-20 06:58] LABS: ALANINE AMINOTRANSFERASE 53 U/L (12-78); ANION GAP 14 mmol/L (8-16); ASPARTATE AMINOTRANSFERASE 127 U/L (15-37); BILIRUBIN,TOTAL 8.1 mg/dL (0.1-1.0); CALCIUM, TOTAL 6.7 mg/dL (8.8-10.5); CARBON DIOXIDE 20 mmol/L (22-29); CREATININE 2.28 mg/dL (0.60-1.30); POTASSIUM 3.6 mmol/L (3.5-5.1); SODIUM SERUM 129 mmol/L (136-145); UREA NITROGEN, BLOOD 24 mg/dL (7-18)
[2017-02-20 07:34] LABS: CREATINE KINASE MB 4.7 ng/mL (0-5)
[2017-02-20 07:45] LABS: B-TYPE NATRIURETIC PEPTIDE 405 pg/mL (0-100)
[2017-02-20 08:00] VITALS: BP 99/50
[2017-02-20 08:15] LABS: PROCALCITONIN (PCT) 40.61 ng/mL (<0.50)
[2017-02-20 08:37] LABS: GLUCOSE,POINT OF CARE 114 MG/DL (70-110)
[2017-02-20 08:37] LABS: GLUCOSE,POINT OF CARE 113 MG/DL (70-110)
[2017-02-20] MEDS: ALBUMIN HUMAN 25%-12.5GM/50ML 50 ML IV SCH ×2 (08:55→20:32)
[2017-02-20] MEDS: PANTOPRAZOLE SODIUM 40 MG/VIAL IVP SCH (08:57)
[2017-02-20] MEDS: VASOPRESSIN 100 UNITS in DEXTROSE 5%-WATER 245 ML IV PRN (09:41)
[2017-02-20] MEDS ORDERED: SODIUM CHLORIDE 0.9% 250 ML IV ONE (11:41)
[2017-02-20 12:00] VITALS: BP 111/54
[2017-02-20] MEDS ORDERED: MAGNESIUM SULFATE 2 GM in DEXTROSE 5%-WATER 50 ML IV ONE (13:15)
[2017-02-20] MEDS: CefTRIAXone 1 GM/DEXTROSE 50 ML IV SCH (14:00)
[2017-02-20 14:43] LABS: CALCIUM, TOTAL 6.4 mg/dL (8.8-10.5); CREATININE 2.59 mg/dL (0.60-1.30); MAGNESIUM 1.5 mg/dL (1.80-2.40); PHOSPHORUS 5.6 mg/dL (2.5-4.9); POTASSIUM 3.4 mmol/L (3.5-5.1)
[2017-02-20 16:00] VITALS: BP 116/51
[2017-02-20 20:00] VITALS: BP 95/48
[2017-02-21] VITALS: BP 98/54
[2017-02-21] MEDS: MetroNIDAZOLE 500 MG/NACL 100 ML IV SCH ×3 (00:45→15:41)
[2017-02-21 00:57] LABS: GLUCOSE,POINT OF CARE 136 MG/DL (70-110)
[2017-02-21 00:57] LABS: GLUCOSE COMMENT 1 Received Meds; GLUCOSE,POINT OF CARE 116 MG/DL (70-110)
[2017-02-21 00:57] LABS: GLUCOSE,POINT OF CARE 161 MG/DL (70-110)
[2017-02-21] MEDS: NOREPINEPHRINE 4 MG/D5%-WATER 250 ML IV PRN ×4 (01:22→21:16)
[2017-02-21] MEDS: LEVALBUTEROL HCL 0.63 MG/3 ML NEB SOLUTION NEB SCH ×6 (02:42→22:08)
[2017-02-21 04:00] VITALS: BP 109/55
[2017-02-21 05:57] LABS: EOSINOPHILS # (AUTO) 0.19 K/uL (0.00-0.70); EOSINOPHILS % (AUTO) 0.94 % (1.0-6.0); HEMOGLOBIN 9.7 g/dL (12.0-16.0); LYMPHOCYTES # (AUTO) 0.3 K/uL (1.0-4.8); LYMPHOCYTES % (AUTO) 1.5 % (22.0-44.0); MEAN CORPUSCULAR HEMOGLOBIN 32.6 pg (26.0-34.0); MEAN CORPUSCULAR HGB CONC 34.8 G/dL (31.0-37.0); MEAN CORPUSCULAR VOLUME 94 fL (80-100); MONOCYTES # (AUTO) 0.6 K/uL (0.1-1.0); MONOCYTES % (AUTO) 3.1 % (2.0-9.0); NEUTROPHILS # (AUTO) 18.9 K/uL (1.8-7.7); PLATELET COUNT (AUTO) 22 K/uL (150-450); RED BLOOD CELL COUNT(AUTO) 2.98 MIL/uL (4.00-5.20); RED CELL DISTRIBUTION WIDTH 15.5 % (11.5-14.5)
[2017-02-21 06:15] LABS: ALBUMIN 1.6 g/dL (3.4-5.0); BILIRUBIN,TOTAL 10.8 mg/dL (0.1-1.0); CALCIUM, TOTAL 6.3 mg/dL (8.8-10.5); CREATININE 2.74 mg/dL (0.60-1.30); POTASSIUM 3.5 mmol/L (3.5-5.1); TOTAL PROTEIN, SERUM 4.7 g/dL (6.4-8.2)
[2017-02-21 06:47] LABS: NEUTROPHILS % (AUTO) 94.5 % (40.0-70.0)
[2017-02-21 07:02] LABS: GLUCOSE,POINT OF CARE 122 MG/DL (70-110)
[2017-02-21] MEDS ORDERED: 0.9% SODIUM CHLORIDE 5 ML NEB SOLUTION NEB ONE ×3 (07:14→19:18)
[2017-02-21] MEDS: ALBUMIN HUMAN 25%-12.5GM/50ML 50 ML IV SCH ×2 (07:43→20:12)
[2017-02-21] MEDS: PROPOFOL 1000 MG/ISO-OSM 100 ML IV PRN ×2 (07:43→18:10)
[2017-02-21] MEDS: PANTOPRAZOLE SODIUM 40 MG/VIAL IVP SCH (07:43)
[2017-02-21] MEDS: METOCLOPRAMIDE HCL 5 MG/ML 2 ML VIAL IVP PRN ×2 (07:44→18:10)
[2017-02-21 08:00] VITALS: BP 103/55
[2017-02-21 09:39] LABS: ABG A-A DIFF O2 187.5 mmHg (10-20.0); ABG BASE EXCESS -8.1 mmol/L (-2.0-3.0); ABG HCO3 19.3 mmol/L (22.0-26.0); ABG OXYHEMOGLOBIN 98.8 % (94.0-100.0); ABG PH 7.511 (7.35-7.450); TEMPERATURE, FAHRENHEIT, BG 98.6 FAHREN (96.0-98.6)
[2017-02-21 09:40] LABS: ABG PCO2 19 mmHg (35-45); ALLEN TEST, BLOOD GAS Positive
[2017-02-21 12:00] VITALS: BP 62/33
[2017-02-21] MEDS ORDERED: MANNITOL 25%-12.5 GM/50 ML VIAL IVP PRN (14:30)
[2017-02-21] MEDS ORDERED: SODIUM CITRATE 4% CATH FLUSH 5 ML SYRINGE IVP ONE ×2 (14:30)
[2017-02-21] MEDS: CefTRIAXone 1 GM/DEXTROSE 50 ML IV SCH (15:41)
[2017-02-21 16:00] VITALS: BP 95/46
[2017-02-21 16:24] LABS: ABG A-A DIFF O2 232.2 mmHg (10-20.0); ABG BASE EXCESS -2.2 mmol/L (-2.0-3.0); ABG HCO3 23.4 mmol/L (22.0-26.0); ABG OXYHEMOGLOBIN 97.4 % (94.0-100.0); ABG PCO2 27 mmHg (35-45); ABG PH 7.508 (7.35-7.450); TEMPERATURE, FAHRENHEIT, BG 98.6 FAHREN (96.0-98.6)
[2017-02-21] MEDS ORDERED: SODIUM CHLORIDE 0.9% 500 ML IV ONE (16:35)
[2017-02-21 17:02] LABS: ALLEN TEST, BLOOD GAS Positive
[2017-02-21] MEDS ORDERED: MANNITOL 25%-12.5 GM/50 ML VIAL IVP ONE (17:23)
[2017-02-21 20:00] VITALS: BP 108/55
[2017-02-22] VITALS: BP 95/47
[2017-02-22] MEDS: PROPOFOL 1000 MG/ISO-OSM 100 ML IV PRN ×2 (00:16→13:22)
[2017-02-22] MEDS: NOREPINEPHRINE 4 MG/D5%-WATER 250 ML IV PRN ×3 (01:42→07:58)
[2017-02-22] MEDS: LEVALBUTEROL HCL 0.63 MG/3 ML NEB SOLUTION NEB SCH ×6 (02:14→23:13)
[2017-02-22 04:00] VITALS: BP 100/53
[2017-02-22 04:43] LABS: GLUCOSE,POINT OF CARE 138 MG/DL (70-110)
[2017-02-22] MEDS ORDERED: SODIUM CHLORIDE 0.9% 500 ML IV ONE (04:52)
[2017-02-22 05:34] LABS: EOSINOPHILS % (AUTO) 0.2 % (1.0-6.0); HEMATOCRIT 29.9 % (36-46); HEMOGLOBIN 9.8 g/dL (12.0-16.0); LYMPHOCYTES # (AUTO) 0.7 K/uL (1.0-4.8); LYMPHOCYTES % (AUTO) 3.2 % (22.0-44.0); MEAN CORPUSCULAR HEMOGLOBIN 30.7 pg (26.0-34.0); MEAN CORPUSCULAR HGB CONC 32.8 G/dL (31.0-37.0); MEAN CORPUSCULAR VOLUME 94 fL (80-100); MONOCYTES # (AUTO) 0.8 K/uL (0.1-1.0); MONOCYTES % (AUTO) 3.7 % (2.0-9.0); NEUTROPHILS # (AUTO) 19.8 K/uL (1.8-7.7); PLATELET COUNT (AUTO) 29 K/uL (150-450); RED BLOOD CELL COUNT(AUTO) 3.19 MIL/uL (4.00-5.20); WHITE BLOOD COUNT (AUTO) 21.3 K/uL (4.5-11.0)
[2017-02-22 05:45] LABS: ALBUMIN 1.6 g/dL (3.4-5.0); BILIRUBIN,TOTAL 11.9 mg/dL (0.1-1.0); CALCIUM, TOTAL 6.6 mg/dL (8.8-10.5); CREATININE 1.87 mg/dL (0.60-1.30); MAGNESIUM 1.7 mg/dL (1.80-2.40); POTASSIUM 3.5 mmol/L (3.5-5.1); TOTAL PROTEIN, SERUM 4.7 g/dL (6.4-8.2)
[2017-02-22 05:54] LABS: NEUTROPHILS % (AUTO) 92.9 % (40.0-70.0)
[2017-02-22 07:27] LABS: GLUCOSE,POINT OF CARE 134 MG/DL (70-110)
[2017-02-22 07:27] LABS: GLUCOSE,POINT OF CARE 124 MG/DL (70-110)
[2017-02-22 07:27] LABS: GLUCOSE,POINT OF CARE 141 MG/DL (70-110)
[2017-02-22] MEDS: PANTOPRAZOLE SODIUM 40 MG/VIAL IVP SCH (07:57)
[2017-02-22] MEDS: ALBUMIN HUMAN 25%-12.5GM/50ML 50 ML IV SCH ×2 (07:57→19:50)
[2017-02-22 08:00] VITALS: BP 110/60
[2017-02-22] MEDS ORDERED: 0.9% SODIUM CHLORIDE 5 ML NEB SOLUTION NEB ONE ×2 (08:01→10:55)
[2017-02-22] MEDS ORDERED: MAGNESIUM SULFATE 2 GM in DEXTROSE 5%-WATER 50 ML IV ONE (09:30)
[2017-02-22 10:18] LABS: ABG A-A DIFF O2 228.3 mmHg (10-20.0); ABG HCO3 22.1 mmol/L (22.0-26.0); ABG OXYHEMOGLOBIN 96.7 % (94.0-100.0); ABG PCO2 28 mmHg (35-45); ABG PH 7.462 (7.35-7.450); TEMPERATURE, FAHRENHEIT, BG 98.6 FAHREN (96.0-98.6)
[2017-02-22 10:34] LABS: ALLEN TEST, BLOOD GAS Positive
[2017-02-22 12:00] VITALS: BP 135/61
[2017-02-22] MEDS: CefTRIAXone 1 GM/DEXTROSE 50 ML IV SCH (13:23)
[2017-02-22 13:36] LABS: GLUCOSE,POINT OF CARE 136 MG/DL (70-110)
[2017-02-22] MEDS: NOREPINEPHRINE BITARTRATE 16 MG in DEXTROSE 5%-WATER 234 ML IV PRN (15:38)
[2017-02-22 16:00] VITALS: BP 57/29
[2017-02-22 20:00] VITALS: BP 96/39
[2017-02-22 20:55] LABS: APPEARANCE,URINE CLOUDY (CLEAR); GLUCOSE, URINE (UA) NEGATIVE (NEGATIVE); KETONES,URINE TRACE mg/dL (NEGATIVE); LEUKOCYTE ESTERASE ,URINE MODERATE (NEGATIVE); OCCULT BLOOD,URINE LARGE (NEGATIVE); PROTEIN,URINE POS 1+ (NEGATIVE)
[2017-02-22 21:06] LABS: SQUAMOUS EPITHELIAL CELL,UR Few /LPF (None Seen); WBC,URINE 26-50 /HPF (0-5)
[2017-02-23] VITALS (7 sets, daily range): BP systolic 102–116; BP diastolic 50–62
[2017-02-23 01:16] LABS: GLUCOSE,POINT OF CARE 132 MG/DL (70-110)
[2017-02-23 01:16] LABS: GLUCOSE,POINT OF CARE 129 MG/DL (70-110)
[2017-02-23] MEDS: LEVALBUTEROL HCL 0.63 MG/3 ML NEB SOLUTION NEB SCH ×6 (03:12→23:11)
[2017-02-23 06:13] LABS: EOSINOPHILS % (AUTO) 0.4 % (1.0-6.0); HEMATOCRIT 28.8 % (36-46); HEMOGLOBIN 9.7 g/dL (12.0-16.0); LYMPHOCYTES # (AUTO) 0.7 K/uL (1.0-4.8); LYMPHOCYTES % (AUTO) 3.2 % (22.0-44.0); MEAN CORPUSCULAR HGB CONC 33.6 G/dL (31.0-37.0); MEAN CORPUSCULAR VOLUME 95 fL (80-100); MONOCYTES # (AUTO) 0.9 K/uL (0.1-1.0); MONOCYTES % (AUTO) 4.3 % (2.0-9.0); NEUTROPHILS # (AUTO) 19.4 K/uL (1.8-7.7); PLATELET COUNT (AUTO) 52 K/uL (150-450); RED BLOOD CELL COUNT(AUTO) 3.02 MIL/uL (4.00-5.20); RED CELL DISTRIBUTION WIDTH 15.4 % (11.5-14.5)
[2017-02-23 06:19] LABS: ALBUMIN 1.7 g/dL (3.4-5.0); BILIRUBIN,TOTAL 12.9 mg/dL (0.1-1.0); CALCIUM, TOTAL 6.6 mg/dL (8.8-10.5); CREATININE 2.55 mg/dL (0.60-1.30); POTASSIUM 3.3 mmol/L (3.5-5.1); TOTAL PROTEIN, SERUM 4.6 g/dL (6.4-8.2)
[2017-02-23 06:55] LABS: NEUTROPHILS % (AUTO) 92.1 % (40.0-70.0)
[2017-02-23] MEDS ORDERED: SODIUM CITRATE 4% CATH FLUSH 5 ML SYRINGE IVP ONE ×2 (08:45)
[2017-02-23] MEDS: PANTOPRAZOLE SODIUM 40 MG/VIAL IVP SCH (09:09)
[2017-02-23] MEDS: ALBUMIN HUMAN 25%-12.5GM/50ML 50 ML IV SCH ×2 (09:10→20:34)
[2017-02-23 11:17] LABS: BILIRUBIN,TOTAL 12.6 mg/dL (0.1-1.0)
[2017-02-23 11:19] LABS: BILIRUBIN,DIRECT 10.3 mg/dL (0.00-0.20)
[2017-02-23] MEDS ORDERED: SODIUM CHLORIDE 0.9% 250 ML IV ONE (13:19)
[2017-02-23 13:27] LABS: GLUCOSE,POINT OF CARE 111 MG/DL (70-110)
[2017-02-23 13:27] LABS: GLUCOSE,POINT OF CARE 140 MG/DL (70-110)
[2017-02-23] MEDS: CefTRIAXone 1 GM/DEXTROSE 50 ML IV SCH (13:50)
[2017-02-23] MEDS: NOREPINEPHRINE BITARTRATE 16 MG in DEXTROSE 5%-WATER 234 ML IV PRN (13:51)
[2017-02-23] MEDS: PROPOFOL 1000 MG/ISO-OSM 100 ML IV PRN ×2 (14:00→16:50)
[2017-02-23 19:02] LABS: GLUCOSE,POINT OF CARE 120 MG/DL (70-110)
[2017-02-24] VITALS (13 sets, daily range): BP systolic 96–124; BP diastolic 42–65
[2017-02-24] MEDS: LEVALBUTEROL HCL 0.63 MG/3 ML NEB SOLUTION NEB SCH ×6 (02:50→23:02)
[2017-02-24 05:02] LABS: POTASSIUM 3.2 mmol/L (3.5-5.1)
[2017-02-24 05:17] LABS: ALBUMIN 1.6 g/dL (3.4-5.0); BILIRUBIN,TOTAL 13.2 mg/dL (0.1-1.0); CALCIUM, TOTAL 7.3 mg/dL (8.8-10.5); CREATININE 1.89 mg/dL (0.60-1.30); MAGNESIUM 1.9 mg/dL (1.80-2.40); TOTAL PROTEIN, SERUM 4.7 g/dL (6.4-8.2)
[2017-02-24] MEDS: PROPOFOL 1000 MG/ISO-OSM 100 ML IV PRN ×2 (05:37→07:44)
[2017-02-24 06:03] LABS: BASOPHILS % (AUTO) 0.1 % (0.0-2.0); EOSINOPHILS % (AUTO) 0.5 % (1.0-6.0); HEMOGLOBIN 9.3 g/dL (12.0-16.0); LYMPHOCYTES # (AUTO) 0.7 K/uL (1.0-4.8); LYMPHOCYTES % (AUTO) 3.6 % (22.0-44.0); MEAN CORPUSCULAR HEMOGLOBIN 31.6 pg (26.0-34.0); MEAN CORPUSCULAR HGB CONC 33.1 G/dL (31.0-37.0); MEAN CORPUSCULAR VOLUME 95 fL (80-100); MONOCYTES % (AUTO) 5.1 % (2.0-9.0); NEUTROPHILS # (AUTO) 17.8 K/uL (1.8-7.7); PLATELET COUNT (AUTO) 73 K/uL (150-450); RED BLOOD CELL COUNT(AUTO) 2.93 MIL/uL (4.00-5.20); RED CELL DISTRIBUTION WIDTH 16.6 % (11.5-14.5); WHITE BLOOD COUNT (AUTO) 19.6 K/uL (4.5-11.0)
[2017-02-24 06:48] LABS: NEUTROPHILS % (AUTO) 90.7 % (40.0-70.0)
[2017-02-24 06:52] LABS: GLUCOSE,POINT OF CARE 112 MG/DL (70-110)
[2017-02-24 06:52] LABS: GLUCOSE,POINT OF CARE 116 MG/DL (70-110)
[2017-02-24 07:43] LABS: PROCALCITONIN (PCT) 33.5 ng/mL (<0.50)
[2017-02-24] MEDS: ALBUMIN HUMAN 25%-12.5GM/50ML 50 ML IV SCH ×2 (07:43→20:11)
[2017-02-24] MEDS: PANTOPRAZOLE SODIUM 40 MG/VIAL IVP SCH (07:44)
[2017-02-24 10:48] LABS: INR 1.3 (0.9-1.1); PROTHROMBIN TIME 13.6 SEC (9.4-11.6)
[2017-02-24] MEDS ORDERED: POTASSIUM CHLORIDE 10% 40 MEQ/30 ML LIQUID UDCUP PO ONE (12:00)
[2017-02-24] MEDS: CefTRIAXone 1 GM/DEXTROSE 50 ML IV SCH (14:39)
[2017-02-24 15:52] LABS: GLUCOSE,POINT OF CARE 106 MG/DL (70-110)
[2017-02-24] MEDS ORDERED: SODIUM CHLORIDE 0.9% 250 ML IV ONE (16:19)
[2017-02-24 18:06] LABS: GLUCOSE,POINT OF CARE 128 MG/DL (70-110)
[2017-02-24] MEDS: VANCOMYCIN HCL 250 MG/5 ML SOLUTION ORAL.SYG NG SCH (18:22)
[2017-02-24] MEDS: MetroNIDAZOLE 500 MG/NACL 100 ML IV SCH (20:11)
[2017-02-25] VITALS (13 sets, daily range): BP systolic 91–118; BP diastolic 41–55
[2017-02-25] MEDS: VANCOMYCIN HCL 250 MG/5 ML SOLUTION ORAL.SYG NG SCH ×4 (00:15→18:13)
[2017-02-25] MEDS: LEVALBUTEROL HCL 0.63 MG/3 ML NEB SOLUTION NEB SCH ×5 (02:05→19:00)
[2017-02-25] MEDS: PROPOFOL 1000 MG/ISO-OSM 100 ML IV PRN (03:33)
[2017-02-25] MEDS: MetroNIDAZOLE 500 MG/NACL 100 ML IV SCH ×3 (04:04→20:10)
[2017-02-25 05:44] LABS: ALBUMIN 1.7 g/dL (3.4-5.0); BILIRUBIN,TOTAL 14.2 mg/dL (0.1-1.0); CALCIUM, TOTAL 7.5 mg/dL (8.8-10.5); CREATININE 2.46 mg/dL (0.60-1.30); MAGNESIUM 1.9 mg/dL (1.80-2.40); POTASSIUM 3.2 mmol/L (3.5-5.1); TOTAL PROTEIN, SERUM 4.9 g/dL (6.4-8.2)
[2017-02-25 05:53] LABS: EOSINOPHILS % (AUTO) 0.6 % (1.0-6.0); HEMOGLOBIN 9.6 g/dL (12.0-16.0); LYMPHOCYTES # (AUTO) 0.6 K/uL (1.0-4.8); LYMPHOCYTES % (AUTO) 4.2 % (22.0-44.0); MEAN CORPUSCULAR HEMOGLOBIN 31.5 pg (26.0-34.0); MEAN CORPUSCULAR HGB CONC 33.2 G/dL (31.0-37.0); MEAN CORPUSCULAR VOLUME 95 fL (80-100); MONOCYTES # (AUTO) 0.7 K/uL (0.1-1.0); MONOCYTES % (AUTO) 4.6 % (2.0-9.0); NEUTROPHILS # (AUTO) 13.3 K/uL (1.8-7.7); PLATELET COUNT (AUTO) 95 K/uL (150-450); RED BLOOD CELL COUNT(AUTO) 3.06 MIL/uL (4.00-5.20); RED CELL DISTRIBUTION WIDTH 16.8 % (11.5-14.5); WHITE BLOOD COUNT (AUTO) 14.7 K/uL (4.5-11.0)
[2017-02-25] MEDS: NOREPINEPHRINE 4 MG/D5%-WATER 250 ML IV PRN (06:48)
[2017-02-25 06:49] LABS: NEUTROPHILS % (AUTO) 90.6 % (40.0-70.0)
[2017-02-25] MEDS: ALBUMIN HUMAN 25%-25GM/100ML 100 ML IV PRN (08:38)
[2017-02-25] MEDS ORDERED: GADOBUTROL 1 MMOL/ML 10 ML VIAL IVP ONE (09:19)
[2017-02-25] MEDS: ALBUMIN HUMAN 25%-12.5GM/50ML 50 ML IV SCH ×2 (09:51→20:09)
[2017-02-25] MEDS: PANTOPRAZOLE SODIUM 40 MG/VIAL IVP SCH (09:54)
[2017-02-25 10:06] LABS: GLUCOSE,POINT OF CARE 107 MG/DL (70-110)
[2017-02-25] MEDS: CefTRIAXone 1 GM/DEXTROSE 50 ML IV SCH (14:00)
[2017-02-25 15:41] LABS: GLUCOSE,POINT OF CARE 126 MG/DL (70-110)
[2017-02-25 15:41] LABS: GLUCOSE,POINT OF CARE 113 MG/DL (70-110)
[2017-02-25] MEDS ORDERED: MANNITOL 25%-12.5 GM/50 ML VIAL IVP PRN (16:00)
[2017-02-25] MEDS ORDERED: ALBUMIN HUMAN 25%-12.5GM/50ML IV BOTTLE IV PRN (16:00)
[2017-02-25] MEDS ORDERED: SODIUM CITRATE 4% CATH FLUSH 5 ML SYRINGE IVP ONE ×2 (16:00)
[2017-02-26] VITALS (12 sets, daily range): BP systolic 79–132; BP diastolic 41–64
[2017-02-26] MEDS: VANCOMYCIN HCL 250 MG/5 ML SOLUTION ORAL.SYG NG SCH ×4 (00:44→17:44)
[2017-02-26] MEDS: DEXTROSE 50%-WATER 25 GM/50 ML SYRINGE IVP PRN (00:45)
[2017-02-26] MEDS: LEVALBUTEROL HCL 0.63 MG/3 ML NEB SOLUTION NEB SCH ×7 (00:55→22:58)
[2017-02-26] MEDS: MetroNIDAZOLE 500 MG/NACL 100 ML IV SCH ×3 (03:13→20:56)
[2017-02-26] MEDS: NOREPINEPHRINE 4 MG/D5%-WATER 250 ML IV PRN (05:53)
[2017-02-26] MEDS: PROPOFOL 1000 MG/ISO-OSM 100 ML IV PRN (05:55)
[2017-02-26 06:21] LABS: BASOPHILS % (AUTO) 0.3 % (0.0-2.0); EOSINOPHILS % (AUTO) 0.8 % (1.0-6.0); HEMATOCRIT 26.8 % (36-46); HEMOGLOBIN 8.9 g/dL (12.0-16.0); LYMPHOCYTES # (AUTO) 0.7 K/uL (1.0-4.8); LYMPHOCYTES % (AUTO) 5.1 % (22.0-44.0); MEAN CORPUSCULAR HEMOGLOBIN 31.5 pg (26.0-34.0); MEAN CORPUSCULAR HGB CONC 33.2 G/dL (31.0-37.0); MEAN CORPUSCULAR VOLUME 95 fL (80-100); MONOCYTES # (AUTO) 1.1 K/uL (0.1-1.0); MONOCYTES % (AUTO) 7.9 % (2.0-9.0); NEUTROPHILS # (AUTO) 12.2 K/uL (1.8-7.7); PLATELET COUNT (AUTO) 91 K/uL (150-450); RED BLOOD CELL COUNT(AUTO) 2.83 MIL/uL (4.00-5.20); RED CELL DISTRIBUTION WIDTH 17.2 % (11.5-14.5); WHITE BLOOD COUNT (AUTO) 14.2 K/uL (4.5-11.0)
[2017-02-26 06:36] LABS: CREATININE 1.86 mg/dL (0.60-1.30); POTASSIUM 3.2 mmol/L (3.5-5.1)
[2017-02-26 06:37] LABS: ALBUMIN 1.8 g/dL (3.4-5.0); BILIRUBIN,TOTAL 14.4 mg/dL (0.1-1.0); CALCIUM, TOTAL 7.7 mg/dL (8.8-10.5); MAGNESIUM 1.6 mg/dL (1.80-2.40); TOTAL PROTEIN, SERUM 4.6 g/dL (6.4-8.2)
[2017-02-26 07:03] LABS: NEUTROPHILS % (AUTO) 85.9 % (40.0-70.0)
[2017-02-26 08:40] LABS: RBC MORPHOLOGY COMMENT ABNORMAL RBC MORPH
[2017-02-26 08:47] LABS: GLUCOSE COMMENT 1 Received Meds; GLUCOSE,POINT OF CARE 66 MG/DL (70-110)
[2017-02-26 09:01] LABS: GLUCOSE,POINT OF CARE 125 MG/DL (70-110)
[2017-02-26 09:01] LABS: GLUCOSE,POINT OF CARE 78 MG/DL (70-110)
[2017-02-26] MEDS: ALBUMIN HUMAN 25%-25GM/100ML 100 ML IV PRN ×2 (09:08→09:20)
[2017-02-26] MEDS: PANTOPRAZOLE SODIUM 40 MG/VIAL IVP SCH (09:08)
[2017-02-26] MEDS: ALBUMIN HUMAN 25%-12.5GM/50ML 50 ML IV SCH ×2 (09:21→20:56)
[2017-02-26 12:56] LABS: GLUCOSE,POINT OF CARE 114 MG/DL (70-110)
[2017-02-26] MEDS: CefTRIAXone 1 GM/DEXTROSE 50 ML IV SCH (13:31)
[2017-02-26] MEDS ORDERED: SODIUM CITRATE 4% CATH FLUSH 5 ML SYRINGE IVP ONE ×2 (20:00)
[2017-02-26] MEDS ORDERED: ALBUMIN HUMAN 25%-12.5GM/50ML IV BOTTLE IV PRN (20:00)
[2017-02-26] MEDS ORDERED: MANNITOL 25%-12.5 GM/50 ML VIAL IVP PRN (20:00)
[2017-02-26] MEDS ORDERED: SODIUM CHLORIDE 0.9% 1,000 ML IV ONE ×2 (20:14→20:15)
[2017-02-27] VITALS (8 sets, daily range): BP systolic 85–110; BP diastolic 40–58
[2017-02-27 00:32] LABS: GLUCOSE,POINT OF CARE 118 MG/DL (70-110)
[2017-02-27] MEDS: VANCOMYCIN HCL 250 MG/5 ML SOLUTION ORAL.SYG NG SCH ×4 (00:35→18:18)
[2017-02-27] MEDS ORDERED: SODIUM CHLORIDE 0.9% 250 ML IV ONE (02:39)
[2017-02-27] MEDS: LEVALBUTEROL HCL 0.63 MG/3 ML NEB SOLUTION NEB SCH ×6 (02:51→22:58)
[2017-02-27] MEDS: MetroNIDAZOLE 500 MG/NACL 100 ML IV SCH ×3 (03:04→19:41)
[2017-02-27 05:44] LABS: CALCIUM, TOTAL 7.6 mg/dL (8.8-10.5); CREATININE 1.45 mg/dL (0.60-1.30); MAGNESIUM 1.4 mg/dL (1.80-2.40)
[2017-02-27 05:57] LABS: POTASSIUM 2.9 mmol/L (3.5-5.1)
[2017-02-27] MEDS: PROPOFOL 1000 MG/ISO-OSM 100 ML IV PRN (05:59)
[2017-02-27 06:05] LABS: BASOPHILS % (AUTO) 0.2 % (0.0-2.0); EOSINOPHILS % (AUTO) 0.8 % (1.0-6.0); HEMATOCRIT 26.4 % (36-46); HEMOGLOBIN 8.8 g/dL (12.0-16.0); LYMPHOCYTES # (AUTO) 0.7 K/uL (1.0-4.8); LYMPHOCYTES % (AUTO) 5.1 % (22.0-44.0); MEAN CORPUSCULAR HEMOGLOBIN 32.2 pg (26.0-34.0); MEAN CORPUSCULAR HGB CONC 33.3 G/dL (31.0-37.0); MEAN CORPUSCULAR VOLUME 97 fL (80-100); MONOCYTES # (AUTO) 1.1 K/uL (0.1-1.0); MONOCYTES % (AUTO) 8.5 % (2.0-9.0); NEUTROPHILS # (AUTO) 11.1 K/uL (1.8-7.7); PLATELET COUNT (AUTO) 89 K/uL (150-450); RED BLOOD CELL COUNT(AUTO) 2.73 MIL/uL (4.00-5.20); RED CELL DISTRIBUTION WIDTH 17.3 % (11.5-14.5); WHITE BLOOD COUNT (AUTO) 13.1 K/uL (4.5-11.0)
[2017-02-27 06:27] LABS: GLUCOSE,POINT OF CARE 106 MG/DL (70-110)
[2017-02-27 06:27] LABS: GLUCOSE,POINT OF CARE 129 MG/DL (70-110)
[2017-02-27 06:49] LABS: NEUTROPHILS % (AUTO) 85.4 % (40.0-70.0)
[2017-02-27] MEDS: PANTOPRAZOLE SODIUM 40 MG/VIAL IVP SCH (08:08)
[2017-02-27] MEDS: ALBUMIN HUMAN 25%-12.5GM/50ML 50 ML IV SCH ×2 (08:08→19:41)
[2017-02-27] MEDS ORDERED: POTASSIUM PHOS,M-BASIC-D-BASIC 10 MEQ in DEXTROSE 5%-WATER 50 ML IV ONE (09:00)
[2017-02-27 10:29] LABS: RBC MORPHOLOGY COMMENT ABNORMAL RBC MORPH
[2017-02-27 12:33] LABS: CALCIUM, TOTAL 7.6 mg/dL (8.8-10.5); CREATININE 1.89 mg/dL (0.60-1.30); MAGNESIUM 1.6 mg/dL (1.80-2.40); POTASSIUM 3.4 mmol/L (3.5-5.1)
[2017-02-27] MEDS ORDERED: MAGNESIUM SULFATE 1 GM in DEXTROSE 5%-WATER 50 ML IV ONE (13:00)
[2017-02-27] MEDS: CefTRIAXone 1 GM/DEXTROSE 50 ML IV SCH (14:21)
[2017-02-27 18:31] LABS: GLUCOSE,POINT OF CARE 116 MG/DL (70-110)
[2017-02-27 18:31] LABS: GLUCOSE,POINT OF CARE 129 MG/DL (70-110)
[2017-02-28] VITALS: BP 87/43
[2017-02-28] MEDS: VANCOMYCIN HCL 250 MG/5 ML SOLUTION ORAL.SYG NG SCH ×5 (00:24→23:47)
[2017-02-28] MEDS: ALBUMIN HUMAN 25%-25GM/100ML 100 ML IV PRN ×2 (01:01→05:10)
[2017-02-28] MEDS ORDERED: SODIUM CHLORIDE 0.9% 250 ML IV ONE (02:02)
[2017-02-28] MEDS: LOPERAMIDE HCL 2 MG CAPSULE PO PRN ×4 (02:02→17:47)
[2017-02-28] MEDS: MetroNIDAZOLE 500 MG/NACL 100 ML IV SCH ×3 (03:05→20:09)
[2017-02-28] MEDS: LEVALBUTEROL HCL 0.63 MG/3 ML NEB SOLUTION NEB SCH ×6 (03:36→22:58)
[2017-02-28 04:00] VITALS: BP 81/34
[2017-02-28 05:32] LABS: BASOPHILS % (AUTO) 0.2 % (0.0-2.0); EOSINOPHILS % (AUTO) 1.1 % (1.0-6.0); HEMATOCRIT 24.4 % (36-46); LYMPHOCYTES # (AUTO) 0.7 K/uL (1.0-4.8); LYMPHOCYTES % (AUTO) 5.4 % (22.0-44.0); MEAN CORPUSCULAR HEMOGLOBIN 31.6 pg (26.0-34.0); MEAN CORPUSCULAR HGB CONC 32.9 G/dL (31.0-37.0); MEAN CORPUSCULAR VOLUME 96 fL (80-100); MONOCYTES # (AUTO) 1.1 K/uL (0.1-1.0); MONOCYTES % (AUTO) 8.8 % (2.0-9.0); NEUTROPHILS # (AUTO) 10.4 K/uL (1.8-7.7); NEUTROPHILS % (AUTO) 84.5 % (40.0-70.0); PLATELET COUNT (AUTO) 79 K/uL (150-450); RED BLOOD CELL COUNT(AUTO) 2.54 MIL/uL (4.00-5.20); RED CELL DISTRIBUTION WIDTH 18.9 % (11.5-14.5); WHITE BLOOD COUNT (AUTO) 12.3 K/uL (4.5-11.0)
[2017-02-28 06:02] LABS: ALBUMIN 2.3 g/dL (3.4-5.0); MAGNESIUM 1.8 mg/dL (1.80-2.40); PHOSPHORUS 3.3 mg/dL (2.5-4.9); TOTAL PROTEIN, SERUM 4.9 g/dL (6.4-8.2)
[2017-02-28 06:04] LABS: CALCIUM, TOTAL 7.4 mg/dL (8.8-10.5)
[2017-02-28 06:37] LABS: GLUCOSE,POINT OF CARE 110 MG/DL (70-110)
[2017-02-28 06:37] LABS: GLUCOSE,POINT OF CARE 113 MG/DL (70-110)
[2017-02-28 06:42] LABS: BILIRUBIN,TOTAL 17.5 mg/dL (0.1-1.0); CREATININE 2.6 mg/dL (0.60-1.30)
[2017-02-28 06:51] LABS: POTASSIUM 2.9 mmol/L (3.5-5.1)
[2017-02-28 07:31] LABS: PROCALCITONIN (PCT) 19.32 ng/mL (<0.50)
[2017-02-28 07:59] LABS: RBC MORPHOLOGY COMMENT ABNORMAL RBC MORPH
[2017-02-28 08:00] VITALS: BP 87/41
[2017-02-28] MEDS: POTASSIUM CHL 10 MEQ/WATER 50 ML IV SCH ×4 (08:07→10:02)
[2017-02-28] MEDS: PANTOPRAZOLE SODIUM 40 MG/VIAL IVP SCH (08:09)
[2017-02-28] MEDS: ALBUMIN HUMAN 25%-12.5GM/50ML 50 ML IV SCH ×2 (08:09→20:09)
[2017-02-28 12:00] VITALS: BP 100/56
[2017-02-28] MEDS: AMPICILLIN SODIUM/SULBACTAM NA 1.5 GM in SODIUM CHLORIDE 0.9% 50 ML IV SCH (14:05)
[2017-02-28 16:00] VITALS: BP 100/51
[2017-02-28 20:00] VITALS: BP 105/54
[2017-03-01] VITALS (7 sets, daily range): BP systolic 65–113; BP diastolic 34–59
[2017-03-01] MEDS: AMPICILLIN SODIUM/SULBACTAM NA 1.5 GM in SODIUM CHLORIDE 0.9% 50 ML IV SCH (02:08)
[2017-03-01] MEDS: LEVALBUTEROL HCL 0.63 MG/3 ML NEB SOLUTION NEB SCH ×3 (02:45→11:52)
[2017-03-01] MEDS: MetroNIDAZOLE 500 MG/NACL 100 ML IV SCH (04:05)
[2017-03-01 05:28] LABS: GLUCOSE,POINT OF CARE 112 MG/DL (70-110)
[2017-03-01] MEDS: VANCOMYCIN HCL 250 MG/5 ML SOLUTION ORAL.SYG NG SCH (05:37)
[2017-03-01 05:42] LABS: BASOPHILS % (AUTO) 0.1 % (0.0-2.0); EOSINOPHILS % (AUTO) 1.2 % (1.0-6.0); HEMOGLOBIN 8.7 g/dL (12.0-16.0); LYMPHOCYTES # (AUTO) 0.5 K/uL (1.0-4.8); LYMPHOCYTES % (AUTO) 3.4 % (22.0-44.0); MEAN CORPUSCULAR HGB CONC 33.3 G/dL (31.0-37.0); MEAN CORPUSCULAR VOLUME 96 fL (80-100); MONOCYTES # (AUTO) 1.3 K/uL (0.1-1.0); PLATELET COUNT (AUTO) 79 K/uL (150-450); RED BLOOD CELL COUNT(AUTO) 2.71 MIL/uL (4.00-5.20); RED CELL DISTRIBUTION WIDTH 21.3 % (11.5-14.5); WHITE BLOOD COUNT (AUTO) 16.1 K/uL (4.5-11.0)
[2017-03-01 05:59] LABS: NEUTROPHILS % (AUTO) 87.3 % (40.0-70.0)
[2017-03-01 06:27] LABS: ALBUMIN 2.4 g/dL (3.4-5.0); BILIRUBIN,TOTAL 19.8 mg/dL (0.1-1.0); CALCIUM, TOTAL 7.5 mg/dL (8.8-10.5); CREATININE 3.05 mg/dL (0.60-1.30); MAGNESIUM 1.9 mg/dL (1.80-2.40); POTASSIUM 3.3 mmol/L (3.5-5.1); TOTAL PROTEIN, SERUM 5.1 g/dL (6.4-8.2)
[2017-03-01] MEDS ORDERED: 0.9% SODIUM CHLORIDE 5 ML NEB SOLUTION NEB ONE (07:07)
[2017-03-01 08:02] LABS: RBC MORPHOLOGY COMMENT ABNORMAL RBC MORPH
[2017-03-01] MEDS: PANTOPRAZOLE SODIUM 40 MG/VIAL IVP SCH (08:18)
[2017-03-01] MEDS: ALBUMIN HUMAN 25%-12.5GM/50ML 50 ML IV SCH (08:18)
[2017-03-01] MEDS ORDERED: ONDANSETRON HCL 4 MG/2 ML VIAL IVP PRN (08:45)
[2017-03-01] MEDS ORDERED: DiphenhydrAMINE HCL 50 MG/ML VIAL IVP PRN (08:45)
[2017-03-01] MEDS: MORPHINE SULFATE 100 MG/NS/PF 100 ML IV PRN ×2 (09:12→20:48)
[2017-03-01 10:02] LABS: GLUCOSE COMMENT 1 Received Meds; GLUCOSE,POINT OF CARE 101 MG/DL (70-110)
[2017-03-01 10:06] LABS: GLUCOSE COMMENT 1 Stat Lab Glu Request; GLUCOSE,POINT OF CARE 123 MG/DL (70-110)
[2017-03-01 10:52] LABS: GLUCOSE,POINT OF CARE 101 MG/DL (70-110)
[2017-03-01] MEDS ORDERED: ACETAMINOPHEN 650 MG RECTAL SUPPOSITORY PR PRN (19:00)
[2017-03-02 05:25] VITALS: BP 63/36
[2017-03-02 07:02] VITALS: BP 64/35
[2017-03-02 11:00] VITALS: BP 76/39
[2017-03-02 15:00] VITALS: BP 59/27
[2017-03-02] MEDS ORDERED: ATROPINE SULFATE 1% 15 ML OPHTHALMIC SOLUTION SL PRN (15:15)
== END 2017-03-02 22:22 | disposition expired | DRG 870 ==
LOC: EMS 15:07 → ICU 18:19 → 6N 03-01 11:35
PROVIDERS: ADMIT Hospitalist; ATTEND Hospitalist
PROC: 0BH17EZ Insertion of Endotracheal Airway into Trachea, Via Natural or Artificial Opening (ICD-10-PCS; principal; 2017-02-15)
PROC: 02H633Z Insertion of Infusion Device into Right Atrium, Percutaneous Approach (ICD-10-PCS; 2017-02-15)
PROC: B244ZZZ Ultrasonography of Right Heart (ICD-10-PCS; 2017-02-15)
PROC: 0DH67UZ Insertion of Feeding Device into Stomach, Via Natural or Artificial Opening (ICD-10-PCS; 2017-02-15)
PROC: 5A1955Z Respiratory Ventilation, Greater than 96 Consecutive Hours (ICD-10-PCS; 2017-02-15)
DX: A41.51 Sepsis due to Escherichia coli [E. coli] (principal); N17.0 Acute kidney failure with tubular necrosis; R65.21 Severe sepsis with septic shock; I21.4 Non-ST elevation (NSTEMI) myocardial infarction; J96.01 Acute respiratory failure with hypoxia; D65 Disseminated intravascular coagulation [defibrination syndrome]; E87.2 Acidosis; E44.0 Moderate protein-calorie malnutrition; N39.0 Urinary tract infection, site not specified; E87.1 Hypo-osmolality and hyponatremia; E87.4 Mixed disorder of acid-base balance; I50.32 Chronic diastolic (congestive) heart failure; R17 Unspecified jaundice; I13.0 Hypertensive heart and chronic kidney disease with heart failure and stage 1 through stage 4 chronic kidney disease, or unspecified chronic kidney disease; E86.0 Dehydration; B96.89 Other specified bacterial agents as the cause of diseases classified elsewhere; E16.2 Hypoglycemia, unspecified; Z51.5 Encounter for palliative care; M19.90 Unspecified osteoarthritis, unspecified site; N18.9 Chronic kidney disease, unspecified; I48.0 Paroxysmal atrial fibrillation; E87.70 Fluid overload, unspecified; E87.6 Hypokalemia; D64.9 Anemia, unspecified; K52.9 Noninfective gastroenteritis and colitis, unspecified; E88.09 Other disorders of plasma-protein metabolism, not elsewhere classified; I73.9 Peripheral vascular disease, unspecified; Z66 Do not resuscitate; E83.39 Other disorders of phosphorus metabolism; Z87.01 Personal history of pneumonia (recurrent); Z82.49 Family history of ischemic heart disease and other diseases of the circulatory system; Z83.3 Family history of diabetes mellitus
CPT/HCPCS: 71250; 74176; 76700; 76770; 82010; 82247; 82248; 82570; 82805; 82962; 83605; 83735; 83930; 84100; 84132; 84145; 84156; 84300; 84443; 84540; 85379; 85384; 87040; 87070; 87081; 87086; 87106; 87205; 87324; 87340; 87449; 90935; 90947; 93005; 93306; 94002; 94003; 94640; 94644; 94660; 96365; 96366; 96368; 99291; A9585; C9113; G0480; G0481; J0131; J0282; J0295; J0330; J0456; J0696; J1160; J1644; J1956; J2150; J2270; J2370; J2704; J2765; J3430; J3475; J3480; J3490; J7030; J7040; J7050; J7060; P9046; P9047